=== PATIENT | female | born 1975 | race Caucasian/White ===

== ENCOUNTER 2020-08-07 04:06 | Emergency (ER) | payer OTHER ==
[~2020-08-07] VITALS: Ht 165.1 cm; Wt 68.0 kg
[~2020-08-07 04:06] MED LIST: FLEXERIL PO; NAPROXEN 500MG500 M1 PO; NOHOMEMEDICATIONS; XANAX 0.5 MG0.5 MG PO
[2020-08-07] MEDS ORDERED: CITALOPRAM HBR40 MG PO (04:27)
[2020-08-07] MEDS ORDERED: PRILOSEC OTC20 MG PO (04:27)
[2020-08-07 04:38] LABS: URINE BILIRUBIN NEGATIVE (Negative); URINE BLOOD TRACE (Negative); URINE CLARITY CLEAR; URINE COLOR YELLOW; URINE GLUCOSE-RANDOM NEGATIVE (Negative); URINE KETONES NEGATIVE (Negative); URINE NITRITE-REFLEX NEGATIVE (Negative); URINE PROTEIN NEGATIVE (Negative); URINE UROBILINOGEN 0.2 E.U./dl (0.2-1.0)
[2020-08-07 04:39] LABS: URINE LEUKOCYTES-REFLEX 2+ (Negative)
[2020-08-07 04:46] LABS: AMP/METHAMP Negative (Negative); BARBITURATES Negative (Negative); BENZODIAZEPINES Negative (Negative); COCAINE Negative (Negative); METHADONE Negative (Negative); OPIATES Negative (Negative); PCP Negative (Negative); THC POSITIVE (Negative)
[2020-08-07 04:47] LABS: ABSOLUTE BASOPHILS 0.1 thou/uL (0.0-0.2); ABSOLUTE EOSINOPHILS 0.1 thou/uL (0.0-0.7); ABSOLUTE LYMPHOCYTES 4.7 thou/uL (0.8-5.3); ABSOLUTE MONOCYTES 0.8 thou/uL (0.0-1.2); ABSOLUTE NEUTROPHILS 4.1 thou/uL (1.6-8.1); BASOPHILS 1.5 %; EOSINOPHILS 0.7 %; HEMATOCRIT 38.4 % (37.0-47.0); HEMOGLOBIN 12.8 gm/dL (12.0-15.0); LYMPHOCYTES 47.7 %; MCH 28.2 pg (26.0-34.0); MCHC 33.4 g/dL (28.0-37.0); MCV 84.3 fL (80.0-100.0); MONOCYTES 8.5 %; MPV 7.4 fl. (7.2-11.1); NUCLEATED RBCS 0 /100WBC; PLATELET COUNT* 468 thou/uL (150-400); POLYS 41.6 %; RBC 4.56 mil/uL (4.20-5.00); RDW-CV 16.4 % (10.5-14.5); WBC 9.9 thou/uL (4.0-11.0)
[2020-08-07 05:01] LABS: SQUAMOUS 0-3 Few /LPF (0-3); URINE RBC 3-10 Few /HPF (0-2); URINE WBC-REFLEX >25 Many /HPF (0-5); WBC CLUMPS Few (None Seen)
[2020-08-07 05:02] LABS: BACTERIA-REFLEX >30 Many /HPF (None Seen); CASTS None Seen /LPF (None Seen); CRYSTALS None Seen /LPF (None Seen); MUCUS 0-3 Light strn/LPF (None Seen)
[2020-08-07 05:28] LABS: CALCIUM 8.3 mg/dL (8.5-10.1); CREATININE 0.8 mg/dL (0.6-1.3); POTASSIUM 3.1 mmol/L (3.5-5.1)
[2020-08-07 05:33] LABS: ALBUMIN 3.5 g/dL (3.4-5.0); TOTAL BILIRUBIN 0.5 mg/dL (<0.1-1.0); TOTAL PROTEIN 6.4 g/dL (6.4-8.2)
[2020-08-07] MEDS ORDERED: CEPHALEXIN500 MG PO (06:41)
[2020-08-07] MEDS ORDERED: CHLORDIAZEPOXID25 M1 PO (06:41)
[2020-08-07] MEDS ORDERED: ZOFRAN ODT4 MG PO (06:46)
[2020-08-07 07:25] VITALS: BP 118/67
== END 2020-08-07 07:25 | disposition home or self-care (01) ==
LOC: M.ERS 04:06
PROVIDERS: Personal Emergency Response Attendant
DX: N39.0 Urinary tract infection, site not specified (principal); F41.9 Anxiety disorder, unspecified; M25.642 Stiffness of left hand, not elsewhere classified; M25.641 Stiffness of right hand, not elsewhere classified; Z79.899 Other long term (current) drug therapy; Z91.013 Allergy to seafood